=== PATIENT | male | born 1970 | race African-American/Black ===

== ENCOUNTER 2016-08-17 20:40 | Outpatient (CLI) | payer BC ==
[~2016-08-17 20:40] MED LIST: ACHD5005 PO; ALPR.25T PO; AMLO5TAB2 PO; MULT1CAP27 PO; OLME1TAB25 PO; OLME5TAB3 PO; PRAV80TA2 PO; [UNRECOGNIZED DRUG - REMARK]
--- OUTSIDE RECORDS SUMMARY | 2016-08-17 21:46 | XMS REPORT | Continuity of Care Document ---
Author Author [facility] Organization [facility] Address Unknown Phone Unavailable Care Team Providers Care Agricultural Lender Name Role Phone PCP Unavailable Source Comments Some departments are not documenting in the electronic medical record. If you do not see the information that you expected, contact Release of Information in the Health Information Management department at [phone] for further assistance in locating additional records.[facility] Active Allergies and Adverse Reactions Not on File Current Medications Not on file Active Problems Not on file Social History Tobacco Use Types Packs/Day Years Used Date Never Assessed Plan of Care Date Type Specialty Providers Description 11/12/2016 Appointment Neurology Patria Palomino MD [address] [facility] [address] [place] [address] [phone] (Fax) Results from Last 3 Months Not on file
== END 2016-08-18 06:40 | disposition home or self-care (01) ==
LOC: SLEEP 20:40
PROVIDERS: ATTEND Nurse Practitioner Family
DX: G47.30 Sleep apnea, unspecified (principal); R06.83 Snoring; I10 Essential (primary) hypertension
CPT/HCPCS: 95811

== ENCOUNTER 2018-08-10 05:38 | Outpatient (CLI) | payer BC ==
[~2018-08-10] VITALS: Ht 170.2 cm; Wt 99.8 kg
[2018-08-10] MEDS ORDERED: ATOR20TA66 PO (15:24)
[2018-08-10] MEDS ORDERED: TELM80TA8 PO (15:24)
[2018-08-10] MEDS ORDERED: AMLO5TAB7 PO (15:24)
[2018-08-10] MEDS ORDERED: MULT1TAB69 PO (15:24)
[2018-08-10] MEDS ORDERED: POTA99TA25 PO (15:24)
[2018-08-10] MEDS ORDERED: HYDR12.56 PO (15:24)
== END 2018-08-10 15:25 | disposition home or self-care (01) ==
LOC: PREOP 05:38
PROVIDERS: ATTEND Surgery
DX: Z01.818 Encounter for other preprocedural examination (principal)

== ENCOUNTER 2018-08-16 07:16 | Day surgery (SDC) | payer BC ==
[~2018-08-16] VITALS: Ht 170.2 cm; Wt 99.8 kg
[~2018-08-16 07:16] MED LIST changes: +AMLO5TAB7 PO; +ATOR20TA66 PO; +HYDR12.56 PO; +MULT1TAB69 PO; +POTA99TA25 PO; +TELM80TA8 PO
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
--- OUTSIDE RECORDS SUMMARY | 2018-08-16 07:19 | XMS REPORT | Clinical Summary ---
Author Author [facility] Organization [facility] Address Unknown Phone Unavailable Care Team Providers Care Vending Mechanic Name Role Phone Krishna Ohara PCP Source Comments Some departments are not documenting in the electronic medical record. If you do not see the information that you expected, contact Release of Information in the Health Information Management department at [phone] for further assistance in locating additional records.[facility] Allergies No Known Allergies Medications End Date Status Medication Sig Dispensed Refills Start Date Active MULTIVITAMIN PO Take 1 Tab by 0 mouth every morning. Active POTASSIUM GLUCONATE PO Take 595 mg 0 by mouth every morning. Active aspirin EC 81 mg tablet Take 81 mg by 0 mouth every morning. Take with food. Active valsartan (DIOVAN) 320 mg Take 320 mg 0 tablet by mouth every morning. Active hydroCHLOROthiazide Take 12.5 mg 0 (HYDRODIURIL) 12.5 mg by mouth tablet every morning. Active OXYGEN-AIR DELIVERY Use as 0 SYSTEMS (HORIZON NASAL directed at CPAP SYSTEM MISC) bedtime daily. Active amLODIPine (NORVASC) 10 Take 1 Tab by 30 Tab 1 mg tablet mouth every 7 morning. Active acetaminophen (TYLENOL) Take 2 Tabs 0 325 mg tablet by mouth 7 every 6 hours as needed for Pain. 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 Overview: Right hemibody only with sustained right ankle clonus and right up going toe ([place]) Essential hypertension 11/12/2016 Family History Medical History Relation Name Comments Hypertension Father Relation Name Status Comments Father Social History Date Tobacco Use Types Packs/Day Years Used Quit: 01/25/2015 Former Smoker Cigarettes 1 10 Smokeless Tobacco: Former Snuff, Chew User Comments: quit 20 years ago Alcohol Use Drinks/Week oz/Week Comments No 0 Standard 0.0 quit- 10/22 drinks or equivalent Sex Assigned at Date Recorded Not on file Industry Job Start Date Occupation Not on file Not on file Not on file Travel End Travel History Travel Start No recent travel history available. Last Filed Vital Signs Time Taken Vital Sign Reading 01/24/2018 10:06 AM CDT Blood Pressure 135/84 01/24/2018 10:06 AM CDT Pulse 79 04/13/2017 4:46 PM CDT Temperature 36.6 C (97.9 F) 04/14/2017 1:59 PM CDT Respiratory Rate 18 01/24/2018 10:06 AM CDT Oxygen Saturation 98% - Inhaled Oxygen - Concentration 01/24/2018 10:06 AM CDT Weight 102.1 kg (225 lb) 01/24/2018 10:06 AM CDT Height 170.2 cm (5' 7") 01/24/2018 10:06 AM CDT Body Mass Index 35.24 Plan of Treatment Health Maintenance Due Date Last Done Comments PHYSICAL (COMPREHENSIVE) 1977 EXAM HIV SCREENING 1985 DTAP/TDAP VACCINES ( - 1988 Tdap) INFLUENZA VACCINE 03/09/2018 Implants Device Identifier Shelf Expiration Date Model / Serial / Lot Implanted Type Area Manufactur er 07/22/2019 [id number] / [id number] / [id number] Spacer Allograft [id number] N/A: Spine [employer] Precision 7d Lordotic Trapezoid - Cervical LETAL [id number] TRANSPLANT Implanted: Qty: 1 on 02/23/2017 by Sussy Rosales MD 06/04/2019 [id number] / [id number] / [id number] Spacer Allograft [id number] N/A: Spine [employer] Precision Lordotic Trapezoid - Cervical LETAL [id number] TRANSPLANT Implanted: Qty: 1 on 02/23/2017 by Sussy Rosales MD 05/05/2019 [id number] / [id number] / [id number] Spacer Allograft [id number] N/A: Spine [employer] Precision 7d Lordotic Trapezoid - Cervical LETAL [id number] TRANSPLANT Implanted: Qty: 1 on 02/23/2017 by Sussy Rosales MD 07/22/2019 [id number] / [id number] / [id number] Spacer Allograft [id number] N/A: Spine [employer] Precision 7d Lordotic Trapezoid - Cervical LETAL [id number] TRANSPLANT Implanted: Qty: 1 on 02/23/2017 by Sussy Rosales MD / / 68 Mm 4 Level Cervical Plate N/A: Spine [employer] Titanium Cervical HEALTHCARE Implanted: Qty: 1 on 02/23/2017 by : Sussy Cartagena MD SPINE [id number] / [id number] / [id number] Screw Bone 4mm 14mm Latexo N/A: Spine [employer] Titanium 20- D Spine Cervical Cervical HEALTHCARE Implanted: Qty: 10 on 02/23/2017 by : Sussy Cartagena MD SPINE Results Not on filefrom Last 3 Months Insurance Payer Benefit Subscriber ID Type Phone Address Plan / Group [facility] xxxxxxxxxxxx [facility] Advance Directives Patient has advance care planning documents, and code status on file. For more information, please contact: [facility] [address] [place] [address] Date Inactivated Comments Code Status Date Activated 02/26/2017 12:48 PM Full Code 02/23/2017 5:21 PM Provider has discussed Code Status No, discussion not w/Patient or Family? necessary based on Dx
[2018-08-16] MEDS ORDERED: LACTATED RINGERS 1,000 ML IV ONE (07:36)
[2018-08-16] MEDS ORDERED: LACTATED RINGERS 1,000 ML IV STA (07:38)
[2018-08-16 07:48] VITALS: BP 161/102
[2018-08-16] MEDS ORDERED: PROPOFOL INJECTION 50 ML IV ONE (08:17)
[2018-08-16] MEDS ORDERED: MIDAZOLAM 2 MG/2 ML (VERSED) VIAL ONE ×2 (08:17→08:36)
--- NOTE | 2018-08-16 08:59 | Progress Note-Post Operative ---
Post-Operative Progess Note Surgeon (s)/Bulk Tank Car Unloader (s) Surgeon DAVONTE ROACH DO Bulk Tank Car Unloader: na Pre-Operative Diagnosis screening colonoscopy Post-Operative Diagnosis normal colonoscopy Procedure & Operative Findings Date of Procedure 08/16/18 Procedure Performed/Findings colonoscopy Anesthesia Type per [facility] Estimated Blood Loss Estimated blood loss (mL): none Specimens/Packing Specimens Removed na DAVONTE ROACH DO Aug 16, 2018 08:59
--- NOTE | 2018-08-16 09:01 | Discharge Inst-Simple/Standard ---
Discharge Inst-Standard Patient Instructions/Follow Up Plan of Care/Instructions/FU: repeat colonoscopy in 10 year unless family history of colon cancer then 5 years. any issues before then be seen at that time. Activity as Tolerated: Yes Discharge Diet: Regular Diet DAVONTE ROACH DO Aug 16, 2018 09:01
[2018-08-16 09:05] VITALS: BP 149/91
[2018-08-16 09:30] VITALS: BP 135/103
[2018-08-16 09:40] VITALS: BP 135/103
--- NOTE | 2018-08-16 10:47 | Anesthesia-General Post-Op ---
MAC Patient Condition Mental Status/LOC: Same as Preop Cardiovascular: Satisfactory Nausea/Vomiting: Absent Respiratory: Satisfactory Pain: Controlled Complications: Absent Post Op Complications Complications None Follow Up Care/Instructions Patient Instructions None needed. Anesthesiology Discharge Order Discharge Order Patient is doing well, no complaints, stable vital signs, no apparent adverse anesthesia problems. No complications reported per nursing. MARCO ANTONIO MAHONEY CRNA Aug 16, 2018 10:47
--- NOTE | 2018-08-16 14:54 | OPERATIVE REPORT ---
DATE OF SERVICE: 08/16/2018 PREOPERATIVE DIAGNOSIS: Screening colonoscopy. POSTOPERATIVE DIAGNOSIS: Normal colon. PROCEDURE: Colonoscopy. SURGEON: Davonte Solis DO. ANESTHESIA: General. ESTIMATED BLOOD LOSS: None. COMPLICATIONS: None. INDICATIONS: The patient is a 48-year-old male, here for screening colonoscopy. He understands risks and benefits of the procedure and wished to proceed with the procedure. Consent was signed on the chart. DESCRIPTION OF PROCEDURE: The patient was taken to the endoscopy suite and placed in the left lateral recumbent position. Timeout was performed. Digital rectal exam was performed. There were no palpable polyps, masses or ulcerations. Scope was inserted in the rectum and advanced all the way to the cecum with minimal difficulty. Prep was adequate. Scope was then slowly retracted back. There were no polyps, masses or ulcerations in the cecum, ascending, transverse, descending and sigmoid colon. Once in the rectum, scope was retroflexed noting some internal hemorrhoids. No other pathology. Scope was returned to its normal position and slowly withdrawn until completely removed. The patient tolerated the procedure well without any complications and taken to the recovery room in stable condition. RECOMMENDATIONS: The patient will need repeat colonoscopy in 10 years unless family history of colon cancer, which would then be 5 years. Any issues before that be seen at that time. Job ID: [id number] DocumentID: [id number] Dictated Date: 08/16/2018 09:03:02 Breakfast Manager Date: 08/16/2018 14:54:37 Dictated By: DAVONTE SOLIS DO
== END 2018-08-16 09:40 | disposition home or self-care (01) ==
LOC: ENDO 07:16
PROVIDERS: ATTEND Surgery
DX: Z12.11 Encounter for screening for malignant neoplasm of colon (principal); I10 Essential (primary) hypertension; G47.33 Obstructive sleep apnea (adult) (pediatric); E66.9 Obesity, unspecified; Z68.34 Body mass index [BMI] 34.0-34.9, adult; Z79.899 Other long term (current) drug therapy

== ENCOUNTER → 2019-08-22 | Outpatient (CLI) | payer BC ==
[~2019-08-22] MED LIST changes: -AMLO5TAB7 PO; +AMLO5TAB9 PO
--- NOTE | 2019-08-22 17:03 | Diagnostic Imaging Report ---
INDICATION: Fall with pain in the right hip. TIME OF EXAM: 3:18 p.m. FINDINGS: Two views of the right hip were obtained. Femoroacetabular alignment is normal. The joint space is well maintained. Femoral head and neck are intact. No fractures are identified. IMPRESSION: No acute bony abnormality is detected. Dictated by: Dictated on workstation # [id number]
== END ==
LOC: RAD 14:46
PROVIDERS: ATTEND Family Medicine
DX: M25.551 Pain in right hip (principal); W19.XXXA Unspecified fall, initial encounter
CPT/HCPCS: 73502

== ENCOUNTER → 2022-10-08 | Outpatient (CLI) | payer BC ==
[~2022-10-08] MED LIST changes: +AMLO-250 PO; -AMLO5TAB9 PO; +MULT-567 PO; -MULT1TAB69 PO
== END | disposition home or self-care (01) ==
LOC: PREOP 05:33
PROVIDERS: ATTEND Otolaryngology Otolaryngology/Facial Plastic Surgery
DX: Z01.818 Encounter for other preprocedural examination (principal)